=== PATIENT | female | born 1935 ===

== ENCOUNTER → 2023-10-23 | Outpatient (CLI) | payer MEDICARE, MEDICAID ==
[2023-10-23 08:19] LABS: Basophils # (auto) 0 10 ^3/uL (0-0.2); Basophils % (auto) 0.3 % (0.0-2.0); Eosinophils # (auto) 0.1 10 ^3/uL (0-0.8); Eosinophils % (auto) 1.5 % (0.0-7.0); Hematocrit 37.5 % (36.0-46.0); Hemoglobin 12.6 g/dL (12.2-16.2); Lymphocytes # (auto) 2.3 10 ^3/uL (0.4-5.4); Mean Corpuscular Hgb Conc. 33.7 g/dL (32.0-36.0); Mean Corpuscular Volume 91.9 fL (80.0-100.0); Monocytes # (auto) 0.5 10 ^3/uL (0-1.3); Monocytes % (auto) 6.7 % (0.0-12.0); Neutrophils # (auto) 4.5 10 ^3/uL (1.6-8.6); Neutrophils % (auto) 60.5 % (37.0-80.0); Nucleated Red Blood Cells % 0.1 %; Red Blood Cells 4.08 10^6/uL (4.0-5.20); Red Cell Distribution Width 13.3 % (11.8-14.3); White Blood Cell 7.4 10^3/uL (4.4-10.8)
[2023-10-23 08:24] LABS: Urine Bacteria MOD /hpf (None Seen); Urine Blood 2+ /uL (Negative); Urine Clarity Turbid (Clear); Urine Color Light-Yellow (Yellow); Urine Mucus FEW (None Seen); Urine Protein, UAD Negative (Negative); Urine Specific Gravity 1.013 (1.001-1.035); Urine Urobilinogen Normal (Negative); Urine WBC 175 /hpf (0 - 5); Urine WBC Clumps PRESENT /hpf (None Seen)
[2023-10-23 08:49] LABS: Alanine Aminotransferase 13 U/L (7-40); Albumin 4.3 g/dL (3.2-4.8); Alkaline Phosphatase 65 U/L (46-116); Anion Gap 6 (5-15); Aspartate Aminotransferase 16 U/L (13-40); BUN/Creatinine Ratio 17.6 (10.0-20.0); Bilirubin, Total 0.3 mg/dL (0.2-1.0); Blood Urea Nitrogen 13 mg/dL (9-23); Calcium 9.6 mg/dL (8.5-10.1); Carbon Dioxide 28 mmol/L (20-30); Chloride 106 mmol/L (98-107); Cholesterol 183 mg/dL (< 200); Glucose 95 mg/dL (74-106); HDL Cholesterol 53 mg/dL (40-59); LDL Cholesterol 121 mg/dL (< 100); Potassium 4.4 mmol/L (3.5-5.1); Sodium 140 mmol/L (136-145); Thyroid Stimulating Hormone 7.29 uIU/mL (0.55-4.78); Triglycerides 85 mg/dL (< 150)
[2023-10-23 08:50] LABS: Total Protein 7.3 g/dL (5.7-8.2)
[2023-10-23 09:06] LABS: Free T4 (Free Thyroxine) 1.19 ng/dL (0.89-1.76)
[2023-10-23 09:07] LABS: Carcinoembryonic Antigen 1.35 ng/mL (<=5.0)
[2023-10-24 10:07] LABS: CA 27.29 10.8 U/mL (0.0-38.6)
[2023-10-24 13:09] LABS: Cancer Antigen (CA) 125 6.9 U/mL (0.0-38.1); Cancer Antigen (CA) 15-3 11.1 U/mL (0.0-25.0)
== END | disposition home or self-care (01) ==
LOC: LAB 07:40
PROVIDERS: ATTEND Internal Medicine
DX: I10 Essential (primary) hypertension (principal); E03.9 Hypothyroidism, unspecified
CPT/HCPCS: 36415; 80053; 80061; 81001; 82306; 82378; 82607; 83036; 83615; 84439; 84443; 85025; 86300; 86301; 86304